=== PATIENT | male | born 1980 | race African-American/Black ===

== ENCOUNTER 2017-12-17 17:57 | Observation (INO) | payer BC, OTHER ==
--- NOTE | 2017-12-17 18:15 | ED ---
General Adult HPI - General Chief complaint: Chest Pain Stated complaint: Chest Pain Time Seen by Provider: 12/17/17 18:04 Source: patient, EMS, RN notes reviewed Mode of arrival: EMS Limitations: no limitations - History of Present Illness Initial comments: Patient's a 37-year-old male presented to the emergency room today by EMS, with chief complaint of chest pain that started approximate hour ago while at work. 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 He states it was hot. He states began feeling chest pain.Please use medication as discussed. Describes it to left side with some numbness tingling sensation going into left arm. He does admit that he has family history on his mother's sign of heart disease. Patient states that he was given aspirin and 1 sublingual nitro from EMS. He states pain is much improved. Currently rates it 05/07. Denies any numbness tingling currently. Patient does admit that he's had some symptoms off and on last week. States this was worse with numbness and tingling going to left arm today. Patient denies any recent fever, chills, shortness of breath, back pain, abdominal pain, nausea or vomiting, dysuria or hematuria, constipation or diarrhea, headaches or visual changes, or any other complaints. - Related Data Home Medications Medication Instructions Recorded Confirmed No Known Home Medications 11/18/15 12/17/17 Allergies Allergy/AdvReac Type Severity Reaction Status Date / Time No Known Allergies Allergy Verified 12/17/17 18:20 Review of Systems ROS Statement: Those systems with pertinent positive or pertinent negative responses have been documented in the HPI. ROS Other: All systems not noted in ROS Statement are negative. Past Medical History Past Medical History: No Reported History History of Any Multi-Drug Resistant Organisms: None Reported Past Surgical History: No Surgical Hx Reported Past Psychological History: No Psychological Hx Reported Smoking Status: Current every day smoker Past Alcohol Use History: Occasional Past Drug Use History: None Reported General Exam - General Exam Comments Initial Comments: General: The patient is awake and alert, in no distress, and does not appear acutely ill. Eye: Pupils are equal, round and reactive to light, extra-ocular movements are intact. No nystagmus. There is normal conjunctiva bilaterally. No signs of icterus. Ears, nose, mouth and throat: There are moist mucous membranes and no oral lesions. Neck: The neck is supple, there is no tenderness or JVD. Cardiovascular: There is a regular rate and rhythm. No murmur, rub or gallop is appreciated. Respiratory: Lungs are clear to auscultation, respirations are non-labored, breath sounds are equal. No wheezes, stridor, rales, or rhonchi. Gastrointestinal: Soft, non-distended, non-tender abdomen without masses or organomegaly noted. There is no rebound or guarding present. No CVA tenderness. Musculoskeletal: Normal ROM, no tenderness. Strength 5/5. Sensation intact. Radial pulses equal bilaterally 2+. Neurological: A&O x 3. CN II-XII intact, There are no obvious motor or sensory deficits. Coordination appears grossly intact. Speech is normal. Skin: Skin is warm and dry and no rashes or lesions are noted. Psychiatric: Cooperative, appropriate mood & affect, normal judgment. Limitations: no limitations Course Vital Signs 12/17/17 12/17/17 17:59 19:13 Temperature 97.9 F 97.3 F L Pulse Rate 76 69 Respiratory 18 18 Rate Blood Pressure 116/74 102/77 O2 Sat by Pulse 100 99 Oximetry EKG Findings - EKG Comments: EKG Findings:: EKG performed at 1804: Shows normal sinus rhythm at 72 beats per minute. CO interval 136. QRS 80. QT/QTC 386/422. no acute ST changes. Medical Decision Making - Medical Decision Making Patient reexamined at this time shows no signs of distress. Patient is chest pain-free. He was given aspirin and nitro right humerus. Which did relieve his symptoms. Patient labs been reviewed and negative cardiac enzymes. Patient 's chest x-rays negative. EKG showing no acute changes. Patient will be admitted to the hospital with consult cardiology. - Lab Data Result diagrams: 12/17/17 18:32 12/17/17 18:32 Lab Results 12/17/17 12/17/17 12/17/17 Range/Units 18:32 18:32 18:32 WBC 6.1 (3.8-10.6) k/uL RBC 4.70 (4.30-5.90) m/uL Hgb 14.5 (13.0-17.5) gm/dL Hct 44.2 (39.0-53.0) % MCV 93.9 (80.0-100.0) fL MCH 30.8 (25.0-35.0) pg MCHC 32.8 (31.0-37.0) g/dL RDW 13.4 (11.5-15.5) % Plt Count 238 (150-450) k/uL Neutrophils % 55 % Lymphocytes % 33 % Monocytes % 5 % Eosinophils % 5 % Basophils % 1 % Neutrophils # 3.3 (1.3-7.7) k/uL Lymphocytes # 2.0 (1.0-4.8) k/uL Monocytes # 0.3 (0-1.0) k/uL Eosinophils # 0.3 (0-0.7) k/uL Basophils # 0.0 (0-0.2) k/uL PT (9.0-12.0) sec INR (<1.2) APTT (22.0-30.0) sec Sodium 140 (137-145) mmol/L Potassium 3.8 (3.5-5.1) mmol/L Chloride 104 (98-107) mmol/L Carbon Dioxide 27 (22-30) mmol/L Anion Gap 9 mmol/L BUN 11 (9-20) mg/dL Creatinine 0.70 (0.66-1.25) mg/dL Est GFR (CKD-EPI)AfAm >90 (>60 ml/min/1.73 sqM) Est GFR (CKD-EPI)NonAf >90 (>60 ml/min/1.73 sqM) Glucose 76 (74-99) mg/dL Calcium 8.8 (8.4-10.2) mg/dL Total Bilirubin 0.7 (0.2-1.3) mg/dL AST 64 H (17-59) U/L ALT 52 (21-72) U/L Alkaline Phosphatase 84 (38-126) U/L Total Creatine Kinase 410 H (55-170) U/L CK-MB (CK-2) 1.6 (0.0-2.4) ng/mL CK-MB (CK-2) Rel Index 0.4 Troponin I <0.012 (0.000-0.034) ng/mL Total Protein 7.2 (6.3-8.2) g/dL Albumin 4.5 (3.5-5.0) g/dL Urine Color Urine Appearance (Clear) Urine pH (5.0-8.0) Ur Specific [place] (1.001-1.035) Urine Protein (Negative) Urine Glucose (UA) (Negative) Urine Ketones (Negative) Urine Blood (Negative) Urine Nitrite (Negative) Urine Bilirubin (Negative) Urine Urobilinogen (<2.0) mg/dL Ur Leukocyte Esterase (Negative) Urine RBC (0-5) /hpf Ur Squamous Epith Cells (0-4) /hpf Urine Bacteria (None) /hpf Urine Mucus (None) /hpf Urine Opiates Screen (NotDetected) Ur Oxycodone Screen (NotDetected) Urine Methadone Screen (NotDetected) Ur Propoxyphene Screen (NotDetected) Ur Barbiturates Screen (NotDetected) U Tricyclic Antidepress (NotDetected) Ur Phencyclidine Scrn (NotDetected) Ur Amphetamines Screen (NotDetected) U Methamphetamines Scrn (NotDetected) U Benzodiazepines Scrn (NotDetected) Urine Cocaine Screen (NotDetected) U Marijuana (THC) Screen (NotDetected) 12/17/17 12/17/17 Range/Units 18:32 18:36 WBC (3.8-10.6) k/uL RBC (4.30-5.90) m/uL Hgb (13.0-17.5) gm/dL Hct (39.0-53.0) % MCV (80.0-100.0) fL MCH (25.0-35.0) pg MCHC (31.0-37.0) g/dL RDW (11.5-15.5) % Plt Count (150-450) k/uL Neutrophils % % Lymphocytes % % Monocytes % % Eosinophils % % Basophils % % Neutrophils # (1.3-7.7) k/uL Lymphocytes # (1.0-4.8) k/uL Monocytes # (0-1.0) k/uL Eosinophils # (0-0.7) k/uL Basophils # (0-0.2) k/uL PT 10.8 (9.0-12.0) sec INR 1.1 (<1.2) APTT 24.8 (22.0-30.0) sec Sodium (137-145) mmol/L Potassium (3.5-5.1) mmol/L Chloride (98-107) mmol/L Carbon Dioxide (22-30) mmol/L Anion Gap mmol/L BUN (9-20) mg/dL Creatinine (0.66-1.25) mg/dL Est GFR (CKD-EPI)AfAm (>60 ml/min/1.73 sqM) Est GFR (CKD-EPI)NonAf (>60 ml/min/1.73 sqM) Glucose (74-99) mg/dL Calcium (8.4-10.2) mg/dL Total Bilirubin (0.2-1.3) mg/dL AST (17-59) U/L ALT (21-72) U/L Alkaline Phosphatase (38-126) U/L Total Creatine Kinase (55-170) U/L CK-MB (CK-2) (0.0-2.4) ng/mL CK-MB (CK-2) Rel Index Troponin I (0.000-0.034) ng/mL Total Protein (6.3-8.2) g/dL Albumin (3.5-5.0) g/dL Urine Color Yellow Urine Appearance Clear (Clear) Urine pH 6.0 (5.0-8.0) Ur Specific [place] 1.027 (1.001-1.035) Urine Protein 1+ H (Negative) Urine Glucose (UA) Negative (Negative) Urine Ketones Trace H (Negative) Urine Blood Negative (Negative) Urine Nitrite Negative (Negative) Urine Bilirubin Negative (Negative) Urine Urobilinogen 3.0 (<2.0) mg/dL Ur Leukocyte Esterase Negative (Negative) Urine RBC 1 (0-5) /hpf Ur Squamous Epith Cells <1 (0-4) /hpf Urine Bacteria Rare H (None) /hpf Urine Mucus Moderate H (None) /hpf Urine Opiates Screen Not Detected (NotDetected) Ur Oxycodone Screen Not Detected (NotDetected) Urine Methadone Screen Not Detected (NotDetected) Ur Propoxyphene Screen Not Detected (NotDetected) Ur Barbiturates Screen Not Detected (NotDetected) U Tricyclic Antidepress Not Detected (NotDetected) Ur Phencyclidine Scrn Not Detected (NotDetected) Ur Amphetamines Screen Not Detected (NotDetected) U Methamphetamines Scrn Not Detected (NotDetected) U Benzodiazepines Scrn Not Detected (NotDetected) Urine Cocaine Screen Not Detected (NotDetected) U Marijuana (THC) Screen Not Detected (NotDetected) Disposition Clinical Impression: Chest pain Disposition: ADMITTED IP TO THIS HOSP Condition: Good Instructions: Chest Pain (ED) Is patient prescribed a controlled substance at d/c from ED?: No Referrals: None,Stated [Primary Care Provider] - 1-2 days Time of Disposition: 19:46
[2017-12-17 18:48] LABS: Basophils % (A) 1 %; Eosinophils # (A) 0.3 k/uL (0-0.7); Eosinophils % (A) 5 %; HCT 44.2 % (39.0-53.0); HGB 14.5 gm/dL (13.0-17.5); Lymphocytes % (A) 33 %; MCH 30.8 pg (25.0-35.0); MCHC 32.8 g/dL (31.0-37.0); MCV 93.9 fL (80.0-100.0); Mean Platelet Volume 7.9; Monocytes # (A) 0.3 k/uL (0-1.0); Monocytes % (A) 5 %; Neutrophils # (A) 3.3 k/uL (1.3-7.7); Neutrophils % (A) 55 %; Platelet Count 238 k/uL (150-450); RDW 13.4 % (11.5-15.5); WBC 6.1 k/uL (3.8-10.6)
[2017-12-17 18:55] LABS: INR 1.1 (<1.2); Partial Thromboplastin Time 24.8 sec (22.0-30.0); Prothrombin Time 10.8 sec (9.0-12.0)
[2017-12-17 18:58] LABS: Appearance,Urine Clear (Clear); Bacteria,Urine Rare /hpf; Bilirubin,Urine Negative (Negative); Blood,Urine Negative (Negative); Color,Urine Yellow; Glucose,Urine (UA) Negative (Negative); Ketones,Urine Trace (Negative); Leukocyte Esterase,Urine Negative (Negative); Mucus,Urine Moderate /hpf; Nitrite,Urine Negative (Negative); Protein,Urine 1+ (Negative); RBC,Urine 1 /hpf (0-5); Specific Gravity,Urine 1.027 (1.001-1.035); Squamous Epithelial Cell,Urine <1 /hpf (0-4)
[2017-12-17 18:58] LABS: ALT 52 U/L (21-72); AST 64 U/L (17-59); Albumin 4.5 g/dL (3.5-5.0); Alkaline Phosphatase 84 U/L (38-126); Anion Gap 9 mmol/L; Blood Urea Nitrogen 11 mg/dL (9-20); Calcium 8.8 mg/dL (8.4-10.2); Carbon Dioxide 27 mmol/L (22-30); Chloride 104 mmol/L (98-107); Glucose 76 mg/dL (74-99); Potassium 3.8 mmol/L (3.5-5.1); Sodium 140 mmol/L (137-145); Total Bilirubin 0.7 mg/dL (0.2-1.3); Total Protein 7.2 g/dL (6.3-8.2)
[2017-12-17 19:04] LABS: Amphetamine Screen,Urine Not Detected (NotDetected); Barbiturate Screen,Urine Not Detected (NotDetected); Benzodiazepines Screen,Urine Not Detected (NotDetected); Cocaine Screen,Urine Not Detected (NotDetected); Methadone Screen, Urine Not Detected (NotDetected); Opiate Screen,Urine Not Detected (NotDetected); Oxycodone Screen, Urine Not Detected (NotDetected); Phencyclidine Screen,Urine Not Detected (NotDetected); Tricyclic Antidepressant,Urine Not Detected (NotDetected); Urn Cannabinoid Scrn Not Detected (NotDetected)
[2017-12-17 19:08] LABS: Creatine Kinase 410 U/L (55-170)
--- NOTE | 2017-12-17 19:13 | XR ---
EXAMINATION: XR chest 2V DATE AND TIME: 12/17/2017 6:28 PM CLINICAL INDICATION: pain TECHNIQUE: PA and lateral COMPARISON: None. FINDINGS: The lungs are clear. The pleural spaces are negative. The cardiac silhouette is not enlarged. The remainder of the mediastinal silhouette is unremarkable. The skeletal structures and soft tissues are negative for acute findings. IMPRESSION: NO ACUTE PROCESS.
[2017-12-17 19:19] LABS: Creatine Kinase MB 1.6 ng/mL (0.0-2.4); Troponin I <0.012 ng/mL (0.000-0.034)
[2017-12-17] MEDS ORDERED: NITROGLYCERIN SL TABS 0.4 MG TAB SUBLINGUAL PRN (19:46)
[2017-12-17] MEDS ORDERED: SODIUM CHLORIDE 0.9% 1,000 ML IV ONE (19:46)
[2017-12-17] MEDS ORDERED: ALPRAZolam 0.25 MG TAB PO PRN (23:09)
[2017-12-17] MEDS ORDERED: ACETAMINOPHEN TAB 500 MG TAB PO PRN (23:09)
[2017-12-17] MEDS ORDERED: TEMAZEPAM 15 MG CAP PO PRN (23:09)
[2017-12-17] MEDS ORDERED: HYDROcodone/APAP 5-325MG 1 EACH TAB PO PRN (23:09)
[2017-12-18] MEDS: NICOTINE 14MG/24HR PATCH TRANSDERM SCH ×2 (01:04→12:37)
[2017-12-18 01:27] LABS: Creatine Kinase 345 U/L (55-170)
[2017-12-18 01:42] LABS: Creatine Kinase MB 1.2 ng/mL (0.0-2.4); Troponin I <0.012 ng/mL (0.000-0.034)
--- NOTE | 2017-12-18 06:03 | HP ---
HISTORY AND PHYSICAL DATE OF SERVICE: 12/17/2017 CHIEF COMPLAINT: Chest pain. HISTORY OF PRESENT ILLNESS: This 37-year-old gentleman with a past medical history of no significant medical issues and not being followed by any primary physician in the outpatient setting was complaining of chest pain which is felt in the left side of the chest. The pain was first felt at work and the patient works in a factory apparently. The pain was constricting type and was going to the left shoulder, left arm and the patient came to [facility] and admitted for further evaluation and treatment. EMS gave some nitro with some relief. There is no history of any fever or rigors. No history of headache, loss of consciousness or seizures. The initial EKG showed no acute abnormality. PAST MEDICAL HISTORY: No history of any medical illness. History of smoking. MEDICATIONS: Medications prior to admission are none. ALLERGIES: None. FAMILY HISTORY: History of coronary artery disease and strokes in the family. SOCIAL HISTORY: History of smoking. No history of alcohol intake. REVIEW OF SYSTEMS: ENT: No diminished hearing or diminished vision. CARDIOVASCULAR SYSTEM: As mentioned earlier. RESPIRATORY SYSTEM: As mentioned earlier. GI: No nausea. : No dysuria. NERVOUS SYSTEM: No numbness or weakness. ALLERGY/IMMUNOLOGICAL: No asthma or hayfever. MUSCULOSKELETAL: As mentioned earlier. HEMATOLOGY/ONCOLOGY: No history of anemia. ENDOCRINE: No history of diabetes or hypothyroidism. CONSTITUTIONAL: As mentioned earlier. DERMATOLOGY: Negative. RHEUMATOLOGY: Negative. PSYCHIATRY: As mentioned earlier. PHYSICAL EXAMINATION: The patient is alert and oriented x3. Pulse is 66, blood pressure 109/74, respiration 16, temperature 97.8, pulse ox 100% on room air. HEENT: Conjunctivae normal. Oral mucosa moist. Neck is no jugular venous distention. No carotid bruit. No lymph node enlargement. CARDIOVASCULAR: S1 and S2 muffled. RESPIRATORY: Breath sounds diminished at the bases. No rhonchi, no crackles. ABDOMEN: Soft, nontender. No mass palpable. LEGS: No edema, no swelling. NERVOUS SYSTEM: Higher functions as mentioned earlier. Moves all 4 limbs. No focal deficits. LYMPHATICS: No lymphadenopathy of the neck, axillae or groin. SKIN: No ulcer, rash or bleeding. LABS: CBC within normal limits. CK is 410. Troponins are negative. ASSESSMENT: 1. Chest pain for evaluation, rule out unstable angina. 2. Increased CK with normal troponins. 3. History of nicotine dependence. 4. History of THC previously. RECOMMENDATIONS AND DISCUSSION: This 37-year-old gentleman who presented with multiple complex medical issues, will monitor the patient closely. Continue the current medications. Continue symptomatic treatment. Otherwise, rule out myocardial infarction, unstable angina protocol. Otherwise cardiology consultation. Repeat labs in the morning. Symptomatic treatment. Possible stress test. Guarded prognosis because of multiple complex medical issues. Further recommendations to follow. MMODL / IJN: [id number] /
[2017-12-18 07:13] LABS: Basophils # (A) 0.1 k/uL (0-0.2); Basophils % (A) 1 %; Eosinophils # (A) 0.4 k/uL (0-0.7); Eosinophils % (A) 8 %; HCT 43.7 % (39.0-53.0); HGB 14.2 gm/dL (13.0-17.5); Lymphocytes # (A) 2.1 k/uL (1.0-4.8); Lymphocytes % (A) 38 %; MCH 30.8 pg (25.0-35.0); MCHC 32.5 g/dL (31.0-37.0); MCV 94.9 fL (80.0-100.0); Mean Platelet Volume 7.9; Monocytes # (A) 0.4 k/uL (0-1.0); Monocytes % (A) 7 %; Neutrophils # (A) 2.4 k/uL (1.3-7.7); Neutrophils % (A) 44 %; Platelet Count 218 k/uL (150-450); RBC 4.61 m/uL (4.30-5.90); RDW 13.4 % (11.5-15.5); WBC 5.5 k/uL (3.8-10.6)
[2017-12-18] MEDS ORDERED: PANTOPRAZOLE 40 MG TABLET PO SCH (07:30)
[2017-12-18 07:36] LABS: Anion Gap 5 mmol/L; Blood Urea Nitrogen 13 mg/dL (9-20); Calcium 9.1 mg/dL (8.4-10.2); Carbon Dioxide 29 mmol/L (22-30); Chloride 105 mmol/L (98-107); Cholesterol 130 mg/dL (<200); Glucose 79 mg/dL (74-99); HDL Cholesterol 72 mg/dL (40-60); LDL Cholesterol,Calculated 46 mg/dL (0-99); Potassium 4.3 mmol/L (3.5-5.1); Sodium 139 mmol/L (137-145); Triglycerides 61 mg/dL (<150)
[2017-12-18 07:44] LABS: Creatine Kinase 291 U/L (55-170)
[2017-12-18 07:55] VITALS: RESP 18
[2017-12-18 07:56] LABS: Creatine Kinase MB 1.1 ng/mL (0.0-2.4); Troponin I <0.012 ng/mL (0.000-0.034)
[2017-12-18] MEDS ORDERED: HEPARIN SODIUM,PORCINE 5,000 UNIT/ML 1 ML VIAL SQ SCH (09:00)
[2017-12-18] MEDS ORDERED: ASPIRIN 325 MG TAB PO SCH (09:00)
--- NOTE | 2017-12-18 11:05 | P.CRDCN ---
History of Present Illness History of present illness: Mr. Lorenzo is a pleasant 37-year-old male past medical history significant for chronic nicotine dependence. He denies history of coronary artery disease, hypertension, dyslipidemia or diabetes mellitus. He has never seen a security associate for any reason. He states his mother had her first AL at 44. Yesterday while at work he developed a heavy pressure sensation in the left precordial region with radiation down the left arm associated with shortness of breath and mild diaphoresis. He states the symptoms came on out of nowhere with no specific aggravating factor. He sat down as soon as he started feeling this and called EMS for evaluation. The pain persisted for approximately 20 minutes with no alleviating factors noted. When EMS arrived he was given aspirin and sublingual nitroglycerin and his symptoms completely subsided. He had no recurrence of symptoms since admission to the hospital. He denies associated palpitations, dizziness, nausea or vomiting. He states earlier that morning he did feel so he had a little upper respiratory symptoms and he had taken some DayQuil. EKG reveals sinus mechanism with no acute ST or T-wave abnormalities noted. Telemetry tracings have been unremarkable. Chest xray negative for an acute cardiopulmonary process. Laboratory data reviewed, hemoglobin 14.2, platelets 218, sodium 139, potassium 4.3, creatinine 0.74, cardiac enzymes negative 3, LDL 46, HDL 72. He takes no daily cardiac medications. Review of Systems At the time of my exam: CONSTITUTIONAL: Denies fever. Denies chills. EYES: Denies blurred vision. Denies vision changes. Denies eye pain. EARS, NOSE, MOUTH & THROAT: Denies headache. Denies sore throat. Denies ear pain. CARDIOVASCULAR: Denies chest pain. Denies shortness of breath. Denies orthopnea. Denies PND. Denies palpitations. RESPIRATORY: Denies cough. GASTROINTESTINAL: Denies abdominal pain. Denies diarrhea. Denies constipation. Denies nausea. Denies vomiting. MUSCULOSKELETAL: Denies myalgias. INTEGUMENTARY: Denies pruitis. Denies rash. NEUROLOGIC: Denies numbness. Denies tingling. Denies weakness. PSYCHIATRIC: Denies anxiety. Denies depression. ENDOCRINE: Denies fatigue. Denies weight change. Denies polydipsia. Denies polyurina. GENITOURINARY: Denies burning, hematuria or urgency with micturation. HEMATOLOGIC: Denies history of anemia. Denies bleeding. Past Medical History Past Medical History: No Reported History Additional Past Medical History / Comment(s): denies any medical probelms History of Any Multi-Drug Resistant Organisms: None Reported Past Surgical History: No Surgical Hx Reported Additional Past Surgical History / Comment(s): stated never had any surguries Past Anesthesia/Blood Transfusion Reactions: No Reported Reaction Smoking Status: Current every day smoker - Past Family History Mother Family Medical History: CVA/TIA, Myocardial Infarction (AL) Father History Unknown: Yes Medications and Allergies Home Medications Medication Instructions Recorded Confirmed Type No Known Home Medications 11/18/15 12/17/17 History Allergies Allergy/AdvReac Type Severity Reaction Status Date / Time No Known Allergies Allergy Verified 12/17/17 18:20 Physical Exam Vitals: Vital Signs Temp Pulse Pulse Resp BP BP Pulse Ox 12/18/17 07:15 97.4 F L 60 18 105/73 100 12/18/17 03:55 16 12/18/17 03:43 98.2 F 69 16 101/64 100 12/18/17 00:00 98.5 F 68 16 99/65 100 12/17/17 23:41 16 12/17/17 21:44 97.8 F 66 16 109/74 100 12/17/17 20:56 69 18 113/81 100 12/17/17 19:13 97.3 F L 69 18 102/77 99 12/17/17 17:59 97.9 F 76 18 116/74 100 Intake and Output 12/17/17 12/18/17 12/18/17 22:59 06:59 14:59 Other: # Voids 1 2 Weight 62.142 kg Blood pressure 105/73 heart rate 68 afebrile maintaining oxygen saturation on room air GENERAL: This is a 37-year-old -[place] male in no apparent distress at the time of my examination. HEENT: Head is atraumatic, normocephalic. Pupils are equal, round. Sclerae anicteric. Conjunctivae are clear. Mucous membranes of the mouth are moist. Neck is supple. There is no jugular venous distention. No carotid bruit is heard. LUNGS: Clear to auscultation no wheezes, rales or rhonchi. No chest wall tenderness is noted on palpation or with deep breathing. HEART: Regular rate and rhythm without murmurs, rubs or gallops. S1 and S2 heard. ABDOMEN: Soft, nontender. Bowel sounds are heard. No organomegaly noted. EXTREMITIES: No evidence of peripheral edema and no calf tenderness noted. VASCULAR: Radial and dorsalis pedis pulses palpated, no evidence of clubbing. NEUROLOGIC: Patient is awake, alert and oriented x3. Results 12/18/17 06:19 12/18/17 06:19 Cardiac Enzymes 12/17/17 12/17/17 12/18/17 Range/Units 18:32 18:32 00:32 AST 64 H (17-59) U/L CK-MB (CK-2) 1.6 1.2 (0.0-2.4) ng/mL Troponin I <0.012 <0.012 (0.000-0.034) ng/mL 12/18/17 Range/Units 06:19 AST (17-59) U/L CK-MB (CK-2) 1.1 (0.0-2.4) ng/mL Troponin I <0.012 (0.000-0.034) ng/mL Coagulation 12/17/17 Range/Units 18:32 PT 10.8 (9.0-12.0) sec APTT 24.8 (22.0-30.0) sec Lipids 12/18/17 Range/Units 06:19 Triglycerides 61 (<150) mg/dL Cholesterol 130 (<200) mg/dL HDL Cholesterol 72 H (40-60) mg/dL CBC 12/17/17 12/18/17 Range/Units 18:32 06:19 WBC 6.1 5.5 (3.8-10.6) k/uL RBC 4.70 4.61 (4.30-5.90) m/uL Hgb 14.5 14.2 (13.0-17.5) gm/dL Hct 44.2 43.7 (39.0-53.0) % Plt Count 238 218 (150-450) k/uL Comprehensive Metabolic Panel 12/17/17 12/18/17 Range/Units 18:32 06:19 Sodium 140 139 (137-145) mmol/L Potassium 3.8 4.3 (3.5-5.1) mmol/L Chloride 104 105 (98-107) mmol/L Carbon Dioxide 27 29 (22-30) mmol/L BUN 11 13 (9-20) mg/dL Creatinine 0.70 0.74 (0.66-1.25) mg/dL Glucose 76 79 (74-99) mg/dL Calcium 8.8 9.1 (8.4-10.2) mg/dL AST 64 H (17-59) U/L ALT 52 (21-72) U/L Alkaline Phosphatase 84 (38-126) U/L Total Protein 7.2 (6.3-8.2) g/dL Albumin 4.5 (3.5-5.0) g/dL Current Medications Generic Name Dose Route Start Last Admin Trade Name Freq PRN Reason Stop Dose Admin Acetaminophen 500 mg 12/17/17 23:09 Tylenol Tab PO Q6HR PRN Fever and/ or Pain Hydrocodone Bitart/Acetaminophen 1 each 12/17/17 23:09 [place] 5-325 PO Q6HR PRN Pain Alprazolam 0.25 mg 12/17/17 23:09 Xanax PO TID PRN Anxiety Aspirin 325 mg 12/18/17 09:00 Aspirin PO DAILY [facility] Heparin Sodium (Porcine) 5,000 unit 12/18/17 09:00 Heparin SQ Q12HR [facility] Sodium Chloride 1,000 mls @ 20 mls/hr 12/17/17 19:46 12/17/17 21:15 Saline 0.9% IV 12/18/17 19:45 Not Given .Q24H ONE Nicotine 1 patch 12/17/17 23:15 12/18/17 01:04 Habitrol 14mg/24hr Patch TRANSDERM Not Given DAILY [facility] Nitroglycerin 0.4 mg 12/17/17 19:46 Nitrostat SUBLINGUAL Q5M PRN Chest Pain Pantoprazole Sodium 40 mg 12/18/17 07:30 Protonix PO [facility] Temazepam 15 mg 12/17/17 23:09 Restoril PO HS PRN Insomnia Intake and Output 12/17/17 12/18/17 12/18/17 22:59 06:59 14:59 Other: # Voids 1 2 Weight 62.142 kg 12/18/17 06:19 12/18/17 06:19 Assessment and Plan Assessment: ASSESSMENT Chest pain, atypical. An acute coronary event has been ruled out with no EKG evidence of ischemia and negative cardiac enzymes. May be related to viral illness. Family history of premature coronary artery disease PLAN Obtain 2D echocardiogram and doppler study to assess cardiac structure and function. Check d-dimer. Perform stress echocardiogram to assess for stress induced cardiac ischemia. If stress test is normal he is stable from a cardiac perspective. Thank you kindly for this consultation. Nurse Practitioner note has been reviewed, I agree with a documented findings and plan of care. Patient was seen and examined.
--- NOTE | 2017-12-18 12:19 | ECHOF ---
Referral Reason:sob MEASUREMENTS -------- HEIGHT: 180.3 cm WEIGHT: 62.1 kg BP: 165/73 RVIDd: 2.3 cm (< 3.3) IVSd: 1.0 cm (0.6 - 1.1) LVIDd: 3.6 cm (3.9 - 5.3) LVPWd: 1.0 cm (0.6 - 1.1) IVSs: 1.1 cm LVIDs: 2.6 cm LVPWs: 1.1 cm LA Diam: 2.2 cm (2.7 - 3.8) Ao Diam: 2.9 cm (2.0 - 3.7) AV Cusp: 1.9 cm (1.5 - 2.6) LA Diam: 1.9 cm (2.7 - 3.8) EPSS: 0.3 cm MV E Jani: 0.74 m/s MV DecT: 270 ms MV A Jani: 0.48 m/s MV E/A Ratio: 1.54 RAP: 5.00 mmHg RVSP: 16.95 mmHg MV EF SLOPE: 116.90 mm/s (70 - 150) MV EXCURSION: 1.99 cm (> 18.000) FINDINGS -------- Sinus rhythm. Resting bradycardia (HR<60bpm). This was a technically good study. The left ventricular size is normal. There is borderline concentric left ventricular hypertrophy. Overall left ventricular systolic function is normal with, an EF between 55 - 60 %. The right ventricle is normal in size and function. The left atrial size is normal. The right atrium is normal in size. The aortic valve is trileaflet and appears structurally normal. The mitral valve is normal. There is trace mitral regurgitation. Trace tricuspid regurgitation present. Right ventricular systolic pressure is normal at < 35 mmHg. There is no evidence of pulmonary hypertension. Trace/mild (physiologic) pulmonic regurgitation. The aortic root size is normal. Normal inferior vena cava with normal inspiratory collapse consistent with estimated right atrial pre ssure of 5 mmHg. There is no pericardial effusion. CONCLUSIONS -------- 1. Sinus rhythm. 2. Resting bradycardia (HR<60bpm). 3. This was a technically good study. 4. The left ventricular size is normal. 5. There is borderline concentric left ventricular hypertrophy. 6. Overall left ventricular systolic function is normal with, an EF between 55 - 60 %. 7. The left atrial size is normal. 8. The aortic valve is trileaflet and appears structurally normal. 9. There is trace mitral regurgitation. 10. Trace tricuspid regurgitation present. 11. Right ventricular systolic pressure is normal at < 35 mmHg. 12. Trace/mild (physiologic) pulmonic regurgitation. 13. The aortic root size is normal. 14. There is no pericardial effusion. [employer]: Jaiden Sigala RDCS
[2017-12-18 13:19] VITALS: BP 113/76; PULSE 65; TEMP 98.1
--- NOTE | 2017-12-18 13:31 | ECHOS ---
STRESS ECHOCARDIOGRAM DATE OF SERVICE: 12/18/2017 INDICATIONS: Chest pain. MEDICATIONS: BASELINE HEART RATE: 60 BASELINE BLOOD PRESSURE: 89/49 MAXIMUM HEART RATE: 164 MAXIMUM BLOOD PRESSURE: 169/92 85% MPHR: 156 100% MPHR: 184 METS: 11.5 MAXIMUM STAGE REACHED: III TOTAL EXERCISE TIME: 11 minutes 18 seconds CLINICAL INFORMATION: Baseline rhythm is sinus mechanism, rate of 60, normal axis and intervals, minor nonspecific ST-T wave changes. Baseline blood pressure 89/49 mmHg. Patient exercised on Aayush protocol for 11 minute 18 seconds reaching peak rate of 164 beats per minute which is equal to 89% maximum predicted heart rate. Peak blood pressure 169/92 mmHg. Test was terminated secondary to fatigue. There was no chest pain. Electrocardiograph monitoring revealed no evidence of diagnostic ischemic ST deviation. Baseline echocardiogram revealed normal wall motion. At peak exercise, there was normal wall motion and augmentation with no segmental wall motion. CONCLUSION: 1. Good exercise tolerance with normal electrocardiograph response to exercise. 2. Normal stress echocardiogram with no evidence of stress-induced ischemia. 3. Of note that the peak images were noted with a rapid drop of the heart rate. MMODL / IJN: [id number] /
--- NOTE | 2017-12-18 19:34 | DS ---
DISCHARGE SUMMARY FINAL DIAGNOSES: 1. Chest pain possibly musculoskeletal with negative stress echo. 2. Increased CK with normal troponins. 3. History of nicotine dependence. 4. History of THC previously. DISCHARGE DISPOSITION: The patient is being discharged in stable condition with guarded prognosis. HISTORY OF PRESENT ILLNESS: This 37-year-old gentleman was admitted with chest pain. Myocardial infarction ruled out. Cardiology performed a stress echo, which was normal. The patient had elevated CK, but troponins are normal. Patient improved significantly. On exam, vital signs are stable. Cardiovascular: S1, S2. Abdomen: Soft. Nervous System: No focal deficits. The patient also reports stress at work. DISCHARGE ADVICE: 1. Diet is cardiac. 2. Activities limited until follow up. 3. Follow with Dr. Talley 2-3 days. 4. Follow up with medical pathology teacher as recommended. MEDICATIONS: 1. Tylenol 500 mg q.6h p.r.n. 2. Habitrol 14 daily. MMODL / IJN: [id number] /
== END 2017-12-18 16:53 | disposition home or self-care (01) ==
LOC: EC 17:57 → 3OBS 20:24
PROVIDERS: ADMIT Hospitalist; ATTEND Hospitalist
DX: R07.89 Other chest pain (principal); R61 Generalized hyperhidrosis; R20.2 Paresthesia of skin; R06.02 Shortness of breath; R20.0 Anesthesia of skin; R74.8 Abnormal levels of other serum enzymes; F17.200 Nicotine dependence, unspecified, uncomplicated; Z86.59 Personal history of other mental and behavioral disorders; Z82.3 Family history of stroke; Z82.49 Family history of ischemic heart disease and other diseases of the circulatory system
CPT/HCPCS: 99285 ×2; 36415; 93005; 93306; 93351; 85379; 80061; 80053; 80048; 82550 ×2; 82553 ×2; 84484 ×2; 85025 ×2; 85610; 85730; 81001; 80306; 71046; G0378 ×2; Q9950